=== PATIENT | female | born 2000 | race Caucasian/White ===

== ENCOUNTER → 2018-02-18 | Outpatient (CLI) | payer OTHER ==
[2018-02-18 17:36] LABS: BASO % 0.2 %; BASO ABS # 0.02 K/uL (0-0.2); EOS % 1.4 %; EOS ABS # 0.12 K/uL (0-0.5); HEMOGLOBIN 13.3 g/dL (12.0-16.0); IG# 0.03 K/uL (0.00-0.02); LYMPH % 22.1 %; LYMPH ABS # 1.85 K/uL (1.2-3.4); MEAN CELL VOLUME 86.9 fL (80-100); MEAN CORPUSCULAR HEMOGLOBIN 29.6 pg (25-34); MEAN CORPUSCULAR HGB CONC 34.1 g/dl (32-36); MONO % 8.6 %; MONO ABS # 0.72 K/uL (0.11-0.59); NEUT % 67.3 %; NEUT ABS # 5.65 K/uL (1.4-6.5); PLATELET COUNT 262 K/uL (130-400); RED CELL DISTRIBUTION WIDTH CV 12.5 % (11.5-14.5); RED CELL DISTRIBUTION WIDTH SD 40.1 fL (36.4-46.3); WHITE BLOOD COUNT 8.39 K/uL (4.8-10.8)
== END | disposition home or self-care (01) ==
LOC: C.LAB1850 16:17
PROVIDERS: ATTEND Pediatrics
DX: R53.83 Other fatigue (principal)

== ENCOUNTER → 2018-02-20 | Outpatient (CLI) | payer OTHER | END | disposition home or self-care (01) | LOC: C.LABSPEC 16:56 | PROVIDERS: ATTEND Registered Nurse | DX: J02.9 Acute pharyngitis, unspecified (principal) ==